=== PATIENT | male | born 1980 | race Caucasian/White ===

== ENCOUNTER 2021-10-30 05:12 | Inpatient (IN) ==
[2021-10-30] MEDS ORDERED: SODIUM CHLORIDE 1,000 ML IV STA (05:21)
[2021-10-30] MEDS ORDERED: ZOFRAN 4 MG/2 ML IVP STA (05:21)
[2021-10-30] MEDS ORDERED: PROTONIX IV IVP STA (05:21)
--- NOTE | 2021-10-30 05:29 | ED.PDOC ---
General ED Provider: Dr. SHERRY BULLOCK Chief Complaint: Nausea/Vomiting Stated Complaint: Patient is a 41 year old male who comes to the ER with nausea vomiting and Diarrhea that started at midnight. Did vomit bile. Denies any sick contacts. Also reports abdominal and chest pain when these symptoms started. Time Seen by Provider: 10/30/21 05:20 Mode of Arrival: Walk-In Information Source: Patient Nursing and Triage Documentation Reviewed and Agree: Yes Does patient meet sepsis criteria?: No System Inflammatory Response Syndrome: Not Applicable Sepsis Protocol: For patient's 13 years and over: Temp is 96.8 and below OR 101 and greater Pulse >90 BPM Resp >20/minute Acutely Altered Mental Status Are patient's symptoms suggestive of a new infection, such as: -Pneumonia -Skin, Soft Tissue -Endocarditis -UTI -Bone, Joint Infection -Implantable Device -Acute Abdominal Infection -Wound Infection -Meningitis -Blood Stream Catheter Infection -Unknown GI Complaint Exam Vomiting/Diarrhea Complaint/Exam Onset/Duration: 5 hours ago Symptoms Are: Still present Episodes of Vomiting over last 24 Hours: 12 Episodes of Diarrhea Over Last 24 Hours: 10 Initial Severity: Severe Current Severity: Severe Character of Vomiting: Reports Bilious Character of Diarrhea: Reports Watery Aggravating: Reports Food and Liquids Alleviating: Reports None Associated Signs and Symptoms: Reports Abdominal pain and Cramping Abdominal Findings: Absent Abdominal distention, Rebound tenderness or Pe ritoneal signs Differential Diagnoses: Bowel Obstruction, Cholecystitis, Dehydration, PUD and Viral Gastroenteritis Review of Systems Review Of Systems Constitutional: Reports No symptoms Cardiac: Reports Chest pain GI: Reports Diarrhea, Nausea, Poor appetite and Vomiting : Reports No symptoms Musculoskeletal: Reports No symptoms Skin: Reports No symptoms Neurological: Reports Anxiety Endocrine: Reports No symptoms All Other Systems: Reviewed and Negative [facility] Medical History (Updated 10/30/21 @ 06:58 by SHERRY BULLOCK MD) Hernia Surgical History (Updated 10/30/21 @ 05:26 by SHERRY BULLOCK MD) History of inguinal hernia repair Physical Exam Physical Exam Appearance: Reports Ill-appearing Ill-appearing: Moderate Pain Distress: Moderate Eyes: Reports DIANNE, EOMI and Conjunctiva clear ENT: Reports Nose normal Neck: Not Examined Respiratory: Reports Airway patent, Breath sounds clear and Breath sounds equal Cardiovascular: Reports RRR, Pulses normal and No rub GI/: Reports Soft and Tender (mild ) Musculoskeletal: Reports Normal strength Skin: Reports Warm Neurological: Reports Sensation intact, Motor intact, Alert and Oriented Psychiatric: Reports Anxious Interpretation Radiology Interpretation Radiology Interpretation By: Radiologist Radiology Results: No acute changes Exam Interpreted: CT Scan Radiology Interpretation By: Radiologist Radiology Results: Negative Exam Interpreted: CXR Packaging Associate Rate: Normal Rhythm: Sinus Ectopy: None EKG Interpretation Time of EKG #1: 05:42 Rate: Normal Rhythm: Sinus Interpretation: Bilateral Atrial Enlargment Critical Care Note Critical Care Note Total Critical Care Time (mins): 40 Course Course Hematology/Chemistry: 10/30/21 05:42 10/30/21 05:42 Orders, Labs, Meds: Lab Review 10/30/21 10/30/21 10/30/21 05:42 05:42 05:45 WBC 21.09 H RBC 5.84 Hgb 19.3 H Hct 56.6 H MCV 96.9 H MCH 33.0 H MCHC 34.1 RDW Coeff of Aida 13.4 Plt Count 292 Neutrophils % (Manual) 88.0 H Band Neutrophils % 3.0 Lymphocytes % (Manual) 4.0 L Monocytes % (Manual) 5.0 Anisocytosis Not present Sodium 141.3 Potassium 5.52 H Chloride 104.8 Carbon Dioxide 17.9 L Anion Gap 24.12 BUN 17.0 Creatinine 2.32 H Estimated GFR (MDRD) 31.00 BUN/Creatinine Ratio 7.32 Glucose 182.8 H Calcium 11.32 H Total Bilirubin 0.84 AST 37.1 ALT 48.1 Alkaline Phosphatase 122.7 Total Creatine Kinase 79.9 Troponin I < 0.012 Total Protein 10.51 H Albumin 5.94 H Globulin 4.57 Albumin/Globulin Ratio 1.29 Amylase 110.7 H Lipase 114.2 Influ A Molecular Assay Influ B Molecular Assay SARS-CoV-2 Ag (Rapid) Negative 10/30/21 05:45 WBC RBC Hgb Hct MCV MCH MCHC RDW Coeff of Aida Plt Count Neutrophils % (Manual) Band Neutrophils % Lymphocytes % (Manual) Monocytes % (Manual) Anisocytosis Sodium Potassium Chloride Carbon Dioxide Anion Gap BUN Creatinine Estimated GFR (MDRD) BUN/Creatinine Ratio Glucose Calcium Total Bilirubin AST ALT Alkaline Phosphatase Total Creatine Kinase Troponin I Total Protein Albumin Globulin Albumin/Globulin Ratio Amylase Lipase Influ A Molecular Assay Negative by naat Influ B Molecular Assay Negative by naat SARS-CoV-2 Ag (Rapid) Orders Category Date Time Status EKG-(ED ONLY) Stat CARDIO 10/30/21 05:21 Completed ED IV/MEDIPORT/POWERPORT .ONCE EMERGENCY 10/30/21 05:21 Active AMYLASE Stat LAB 10/30/21 05:42 Completed CBC W/ AUTO DIFF Stat LAB 10/30/21 05:42 Completed COMPREHENSIVE METABOLIC PANEL Stat LAB 10/30/21 05:42 Completed COVID-19 ANTIGEN TEST Stat LAB 10/30/21 05:45 Completed CPK [CREATINE KINASE] Stat LAB 10/30/21 05:42 Completed LIPASE Stat LAB 10/30/21 05:42 Completed MANUAL DIFFERENTIAL Stat LAB 10/30/21 05:42 Completed MOLECULAR FLU A & B [FLU A/B MOLECULAR] Stat LAB 10/30/21 05:45 Completed TROPONIN I Stat LAB 10/30/21 05:42 Completed URINALYSIS C & S IF INDICATED Stat LAB 10/30/21 05:21 Ordered 0.9 % Sodium Chloride [Saline Flush] MEDS 10/30/21 05:21 Active 1 syr IVF PRN PRN Ondansetron HCl/Pf [Zofran 4 mg/2 ml] MEDS 10/30/21 05:21 Discontinued 4 mg IVP ONCE STA Pantoprazole Sodium [Protonix IV] MEDS 10/30/21 05:21 Discontinued 40 mg IVP ONCE STA Sodium Chloride 0.9% [Sodium Chloride] 1,000 ml MEDS 10/30/21 05:21 Discontinued IV BOLUS CHEST, 2 VIEWS PA & LAT Stat RADS 10/30/21 05:[address] ABD/PEL WO RENAL STONE PROT Stat RADS 10/30/21 05:21 Completed Medications Generic Name Dose Route Start Last Admin Trade Name Freq PRN Reason Stop Dose Admin Diphenoxylate HCl/Atropine 1 tab 10/30/21 09:00 Diphenoxylate/Atropine 2.5/0.025 Mg Tablet PO QID SARBJIT Enoxaparin Sodium 30 mg 10/30/21 09:00 Enoxaparin Sodium 30 Mg/0.3 Ml Syr SUBCUT DAILY SARBJIT Promethazine HCl 25 mg/ Sodium 101 mls @ 200 mls/hr 10/30/21 06:43 Chloride IV Q6H PRN Nausea / Vomiting Sodium Chloride 1,000 mls @ 150 mls/hr 10/30/21 07:00 Sodium Chloride IV .Q6H40M SARBJIT Metoclopramide HCl 5 mg 10/30/21 07:00 Metoclopramide Hcl 10 Mg/2 Ml IVP Q6H SARBJIT Morphine Sulfate 2 mg 10/30/21 06:43 Morphine Sulfate 2 Mg/Ml Vial IVP Q4H PRN Severe Pain Ondansetron HCl 4 mg 10/30/21 06:43 Ondansetron Hcl/Pf 4 Mg/2 Ml Sdv IVP Q6H PRN Nausea / Vomiting Sodium Chloride 1 syr 10/30/21 05:21 10/30/21 05:45 0.9% Sodium Chloride 10 Ml Disp.Syrin IVF 1 syr PRN PRN Administration To flush IV Sodium Polystyrene Sulfonate 15 gm 10/30/21 06:57 Sodium Polystyrene Sulfonate 15 Gm/60 Ml Btl PO 10/30/21 06:58 ONCE ONE Discontinued Medications Generic Name Dose Route Start Last Admin Trade Name Freq PRN Reason Stop Dose Admin Sodium Chloride 1,000 mls @ 1,000 mls/hr 10/30/21 05:21 10/30/21 05:45 Sodium Chloride IV 10/30/21 06:20 1,000 mls/hr BOLUS STA Administration Ondansetron HCl 4 mg 10/30/21 05:21 10/30/21 05:45 Ondansetron Hcl/Pf 4 Mg/2 Ml Sdv IVP 10/30/21 05:22 4 mg ONCE STA Administration Pantoprazole Sodium 40 mg 10/30/21 05:21 10/30/21 05:45 Pantoprazole Sodium 40 Mg Vial IVP 10/30/21 05:22 40 mg ONCE STA Administration Vital Signs: Temp Pulse Resp BP Pulse Ox 10/30/21 05:13 97.8 F 110 H 14 112/78 99 Discharge Plan Discharge Patient Disposition: ADMITTED INPATIENT Discharge Problem: Acute renal failure (ARF), Nausea, Vomiting, Gastroenteritis, Leukocytosis (leucocytosis), Acute hyperkalemia ED Provider: SHERRY BULLOCK Condition: Fair Physician Progress Note: []
[2021-10-30 05:49] LABS: HEMATOCRIT 56.6 % (42.0-52.0); HEMOGLOBIN 19.3 g/dl (14.0-18.0); MEAN CORPUSCULAR HGB CONC 34.1 (31.8-35.4); MEAN CORPUSCULAR VOLUME 96.9 fl (80.0-94.0); PLATELET COUNT 292 10^3/uL (140-440); RDW COEFFICIENT OF VARIATION 13.4 % (11.6-14.8); RED BLOOD COUNT 5.84 10^6/ul (4.70-6.10); WHITE BLOOD COUNT 21.09 K/ul (4.2-10.2)
[2021-10-30 06:03] LABS: ALBUMIN 5.94 g/dL (3.5-5.0); ALKALINE PHOSPHATASE 122.7 U/L (38-126); AMYLASE 110.7 U/L (30-110); ANISOCYTOSIS NOT PRESENT (NOT PRESENT); ASPARTATE AMINO TRANSFERASE 37.1 U/L (17-59); BILIRUBIN,TOTAL 0.84 mg/dL (0.2-1.3); CALCIUM 11.32 mg/dL (8.4-10.2); CARBON DIOXIDE 17.9 mmol/L (22-30.0); CHLORIDE 104.8 mmol/L (98-107); CREATINE KINASE 79.9 U/L (55-170); CREATININE 2.32 mg/dL (0.60-1.10); GLUCOSE 182.8 mg/dL (74-106); LIPASE 114.2 U/L (23-300); POTASSIUM 5.52 mmol/L (3.5-5.1); SODIUM 141.3 mmol/L (134.5-145); TOTAL PROTEIN 10.51 g/dL (6.3-8.2)
[2021-10-30 06:06] LABS: MOLECULAR FLU A NEGATIVE BY NAAT (NEGATIVE); MOLECULAR FLU B NEGATIVE BY NAAT (NEGATIVE)
[2021-10-30 06:09] LABS: ALANINE AMINOTRANSFERASE 48.1 U/L (0-50)
--- NOTE | 2021-10-30 06:14 | CT ---
EXAM: CT of the abdomen and pelvis without contrast History: Abdominal cramping. Technique: Multiplanar CT images through the abdomen pelvis were obtained without the administration of IV contrast Findings: Lung bases are clear. No acute osseous abnormalities. No gallstones identified by CT. No liver or splenic lesions. 2 mm calculus within the left kidney. No right renal calculi. No hydronephrosis. The adrenal gland s are unremarkable. No peripancreatic inflammation. Bladder is not well distended. Prostate is not enlarged. The colon is fluid-filled. There are also nondilated fluid filled loops of small bowel a nd fluid seen in the stomach. No bowel obstruction. No free air and no ascites. No lymphadenopathy . The left inguinal hernia containing fat. Impression: 1. Gastroenteritis and diarrhea. 2. Nonobstructing left nephrolithiasis. 3. Left inguinal hernia containing fat All CT scans are performed using dose optimization techniques as appropriate to the performed exam an d include at least one of the following: Automated exposure control, adjustment of the mA and/or kV according t o size, and the use of iterative reconstruction technique.
[2021-10-30 06:15] LABS: TROPONIN I < 0.012 ng/ml (0.0000-0.120)
--- NOTE | 2021-10-30 06:16 | DI ---
EXAM: Two views of the chest. History: Chest pain. Findings: Heart size is normal. No consolidation. No pleural fluid and no pneumothorax. No acute osseous abnormalities. Impression: No acute cardiopulmonary process
[2021-10-30] MEDS ORDERED: PHENERGAN 25 MG/ML VIAL 25 MG in SODIUM CHLORIDE 100 ML IV PRN (06:43)
[2021-10-30] MEDS ORDERED: MORPHINE 2 MG/ML VIAL IVP PRN (06:43)
[2021-10-30] MEDS ORDERED: ZOFRAN 4 MG/2 ML IVP PRN (06:43)
[2021-10-30] MEDS ORDERED: KAYEXALATE SUSP PO ONE (06:57)
[2021-10-30] MEDS: SODIUM CHLORIDE 1,000 ML IV SCH ×3 (08:09→21:07)
[2021-10-30 08:39] VITALS: BMI 24.8
[2021-10-30] MEDS: LOMOTIL PO SCH ×4 (08:46→20:19)
[2021-10-30] MEDS: REGLAN IVP SCH ×3 (08:46→19:11)
[2021-10-30] MEDS: LOVENOX SUBCUT SCH (08:47)
[2021-10-30 13:00] LABS: CREATINE KINASE 134.2 U/L (55-170)
[2021-10-30 13:13] LABS: TROPONIN I < 0.012 ng/ml (0.0000-0.120)
[2021-10-30 20:55] LABS: TROPONIN I 0.012 ng/ml (0.0000-0.120)
[2021-10-30 20:59] LABS: CREATINE KINASE MB 2.35 ng/ml (0.0-2.38)
[2021-10-31] MEDS: REGLAN IVP SCH ×3 (00:53→13:00)
[2021-10-31] MEDS: SODIUM CHLORIDE 1,000 ML IV SCH (03:32)
[2021-10-31 05:21] LABS: BASOPHILS % (AUTO) 0.3 % (0.0-3.0); EOSINOPHILS # (AUTO) 0.1 K/ul (0.0-0.7); EOSINOPHILS % (AUTO) 1.1 % (0.0-7.0); HEMATOCRIT 39.7 % (42.0-52.0); HEMOGLOBIN 13.4 g/dl (14.0-18.0); IMMATURE GRANULOCYTE % (AUTO) 0.5 % (0.0-5.0); LYMPHOCYTES # (AUTO) 0.7 K/uL (0.60-3.4); LYMPHOCYTES % (AUTO) 11.1 (10.0-50.0); MEAN CORPUSCULAR HEMOGLOBIN 33.4 pg (27.0-31.0); MEAN CORPUSCULAR HGB CONC 33.8 (31.8-35.4); MONOCYTES # (AUTO) 0.5 K/uL (0.4-2.0); MONOCYTES % (AUTO) 8.6 (0-10); NEUTROPHILS # (AUTO) 4.9 K/ul (2.0-6.9); NEUTROPHILS % (AUTO) 78.4 % (42.2-75.2); PLATELET COUNT 153 10^3/uL (140-440); RED BLOOD COUNT 4.01 10^6/ul (4.70-6.10); WHITE BLOOD COUNT 6.29 K/ul (4.2-10.2)
[2021-10-31 05:32] LABS: BLOOD UREA NITROGEN 18.6 mg/dL (9-20); CALCIUM 8.29 mg/dL (8.4-10.2); CARBON DIOXIDE 21.3 mmol/L (22-30.0); CHLORIDE 111.5 mmol/L (98-107); CREATININE 1.22 mg/dL (0.60-1.10); GLUCOSE 100.4 mg/dL (74-106); POTASSIUM 4.24 mmol/L (3.5-5.1); SODIUM 136.7 mmol/L (134.5-145)
[2021-10-31 05:48] VITALS: BP 102/63; TEMP 97.1
[2021-10-31] MEDS ORDERED: SODIUM CHLORIDE IV PRN (07:30)
[2021-10-31] MEDS ORDERED: PHENERGAN IV PRN (07:30)
[2021-10-31] MEDS: LOMOTIL PO SCH ×2 (09:54→13:00)
[2021-10-31] MEDS: LOVENOX SUBCUT SCH (09:55)
[2021-10-31 11:00] LABS: BILIRUBIN,URINE Negative (NEGATIVE); CLARITY,URINE Clear (CLEAR); COLOR,URINE Yellow (YELLOW); GLUCOSE, URINE (UA) Negative (NEGATIVE); KETONES,URINE Negative (NEGATIVE); LEUKOCYTE ESTERASE ,URINE Negative (NEGATIVE); NITRITE,URINE Negative (NEGATIVE); PROTEIN,URINE Negative (NEGATIVE); URINE, BLOOD Negative (NEGATIVE); UROBILINOGEN,URINE 0.2 (0.2)
--- NOTE | 2021-10-31 14:06 | PCM.DC ---
Final Diagnosis: gastroenteritis and dehydration Physical Exam Appearance: Well-appearing Ill-appearing: None Pain Distress: None Eyes: Conjunctiva clear ENT: Oropharynx normal Neck: Supple Respiratory: Airway patent Cardiovascular: RRR GI/: Soft and Nontender Musculoskeletal: ROM intact Skin: Warm and Dry Neurological: Alert and Oriented Psychiatric: Affect appropriate (1) Gastroenteritis: Status: Acute Code(s): K52.9 - Noninfective gastroenteritis and colitis, unspecified SNOMED Code(s): 13240192 Reason for Hospitalization: vomiting Prognosis/Condition at Discharge: good Medications at Discharge: Ambulatory Orders none Medication Instructions Recorded 1 [No Reported Medications] 10/30/21 Lab/Diagnostics: wbc normal range, ua normal range Education Provided to Patient and Family: oral fluids and rest Follow-ups: see your doctor, return if worse Discharge Disposition: Home Hospital Course: pt showed continued improvement and is now able to maintain his diet w/o vomiting Plan: see your doctor, return if worse, rest, oral fluids
== END 2021-10-31 14:50 | disposition home or self-care (01) | DRG 392 ==
LOC: ED 05:12 → MEDSURG A 06:34
PROVIDERS: ADMIT Internal Medicine Geriatric Medicine; ATTEND Emergency Medicine Emergency Medical Services